=== PATIENT | male | born 1960 | race Caucasian/White ===

== ENCOUNTER 2018-11-16 06:45 | Emergency (ER) | payer OTHER ==
[2018-11-16 07:33] VITALS: BP 143/89; PULSE 92; TEMP 98.9; BMI 26.6
[2018-11-16] MEDS ORDERED: morphine CARPU-JECT 4 MG/1 ML DISP.SYRIN IM ONE (08:06)
[2018-11-16] MEDS ORDERED: morphine SULFATE 4 MG/ML VIAL ONE (08:07)
[2018-11-16] MEDS ORDERED: LIDOCAINE HCL 1%, 10 MG/ML (20ML VIAL) ONE (08:33)
--- NOTE | 2018-11-16 09:30 | PDOC ---
History of Present Illness - General Chief Complaint: Pain, Acute Stated Complaint: ARM PAIN Time Seen by Provider: 11/16/18 08:02 - History of Present Illness Initial Comments: 11/16/18 09:42 58 years old with no significant past medical history presents to the emergency department with severe shoulder pain. Patient states that he has had shoulder issues for the last several months last night states that he was drinking, got home, remembers getting home but then awoke during the night with severe shoulder pain and presented to the emergency department Pain is 10 out of 10 persistent constant, unable to lift arm above his head worse with movement somewhat alleviated by rest. Past History - Past Medical History Allergies/Adverse Reactions: Allergies Allergy/AdvReac Type Severity Reaction Status Date / Time No Known Allergies Allergy Verified 11/16/18 07:34 Home Medications: Ambulatory Orders NK [No Known Home Medication] 11/16/18 COPD: No Other medical history: hepatitis, kidney stones - Suicide/Smoking/Psychosocial Hx Smoking History: Never smoked Review of Systems - Review of Systems Comments:: 11/16/18 09:42 ROS: A complete review of 10 out of 10 review of systems is taken and is negative apart from what is previously mentioned below and in the HPI. *Physical Exam - Vital Signs Last Vital Signs Temp Pulse Resp BP Pulse Ox 98.9 F 92 H 18 143/89 98 11/16/18 07:31 11/16/18 07:31 11/16/18 07:31 11/16/18 07:31 11/16/18 07:31 - Physical Exam Comments: 11/16/18 09:44 Vitals: Triage Vital signs reviewed General Appearance: no acute distress, well nourished well developed, Head: Atraumatic, Eyes: Pupils equal reactive round, extraocular movement intact Neck: Supple;No Nucal rigidity Chest Wall: Nontender Cardiac: Regular rate and rhythym, no murmurs, no rubs, no gallops, Lungs: Clear to auscultation bilateral, good air movement bilaterally, Abdomen: Soft, non distended, normal bowel sounds, non tender to palpation Extremities: Prominent right humeral head suggestive of shoulder dislocation positive sulcus sign. Neurovascularly intact distally. Skin: Warm and dry, no rashes or lesions, no rash, no petechiae Neuro: AOX3; Cranial Nerves 2-12 grossly intact, Strength intact to all extremities, Sensation intact to all extremities,gait normal Psych: normal mood, normal affect Moderate Sedation - Procedure Monitoring Vital Signs: Procedure Monitoring Vital Signs Temperature 98.9 F 11/16/18 07:31 Pulse Rate 92 H 11/16/18 07:31 Respiratory Rate 18 11/16/18 07:31 Blood Pressure 143/89 11/16/18 07:31 O2 Sat by Pulse Oximetry (%) 98 11/16/18 07:31 Procedures - Joint Reduction Right Joint Reduction Site: right: Shoulder Pre-Procedure NV Exam: normal Conscious Sedation: No Reduction Attempts: 1 Anesthetic: 1% Lidocaine Amount (mL): 5 Procedure: Other (downward traction, supination, external rotation) Post-Procedure NV Exam: normal Complications: No Post Joint Reduction Film: joint reduced Splint: Yes Immobilized: Yes ED Treatment Course - RADIOLOGY Radiology Studies Ordered: Category Date Time Status SHOULDER-RIGHT [RAD] Stat Radiology 11/16/18 08:05 Completed SHOULDER-RIGHT [RAD] Stat Radiology 11/16/18 08:48 Completed - Medications Given in the ED: ED Medications Discontinued Medications Generic Name Dose Route Start Last Admin Trade Name Freq PRN Reason Stop Dose Admin Morphine Sulfate 4 mg 11/16/18 08:06 11/16/18 08:17 Morphine Injection - IM 11/16/18 08:07 4 mg ONCE ONE Administration Medical Decision Making - Medical Decision Making 11/16/18 09:54 58 years old with no past medical history status post shoulder dislocation likely from something related to a movement or fall during his sleep, lower suspicion for fall given there is no bruising anywhere on the patient's body and he has a completely normal neurologic examination. There is no evidence of head trauma patient is not on a blood thinners there is no neck tenderness there is no ecchymosis over the shoulder chest abdomen or legs Patient was given IM morphine for pain a plain shoulder x-ray demonstrated an anterior shoulder dislocation with no evidence of gross fracture interpreted by me Patient was given IM lidocaine under sterile conditions intra-articularly at the shoulder sulcus Downward traction was applied with external rotation which reduced the shoulder a repeat x-ray confirmed reduction Patient's pain completely resolved pre-and post-neurovascular exams were normal Patient was provided with orthopedic follow-up. Findings, the need for follow-up, strict return instructions discussed with patient. *DC/Admit/Observation/Transfer Diagnosis at time of Disposition: Shoulder dislocation Qualifiers: Encounter type: initial encounter Laterality: right Qualified Code(s): S43.004A - Unspecified dislocation of right shoulder joint, initial encounter - Discharge Dispostion Disposition: HOME Decision to Admit order: No - Referrals Referrals: Darian Cowan DO [Staff Physician] - - Patient Instructions Printed Discharge Instructions: Shoulder Dislocation Additional Instructions: Take [id number] Tylenol Motrin as directed for pain. Leave sling in place okay to move shoulder in small movements no movements about head or behind back read can see her hand. Follow-up with either Dr. Cowan or your orthopedist on Saturday or Saturday. Return to ED for any severe worsening symptoms any other injuries or for any concerns. - Post Discharge Activity Forms/Work/School Notes: Back to Work
== END 2018-11-16 10:12 | disposition home or self-care (01) ==
LOC: JER 06:45
PROC: 0RSJXZZ Reposition Right Shoulder Joint, External Approach (ICD-10-PCS; principal; 2018-11-16)
DX: S43.014A Anterior dislocation of right humerus, initial encounter (principal); X50.1XXA Overexertion from prolonged static or awkward postures, initial encounter; Y93.89 Activity, other specified; Y92.89 Other specified places as the place of occurrence of the external cause; Y99.8 Other external cause status
CPT/HCPCS: 73030-TC-RT-FY; 99282-25